=== PATIENT | male | born 1990 | race Caucasian/White ===

== ENCOUNTER 2017-06-02 14:10 | Emergency (ER) | payer OTHER ==
[~2017-06-02] VITALS: Ht 167.6 cm; Wt 59.0 kg
[2017-06-02] MEDS ORDERED: VENTOLIN HFA 1818 GM INH (14:17)
[2017-06-02] MEDS ORDERED: ZPAK PO (14:17)
[2017-06-02 15:52] VITALS: BP 108/78
== END 2017-06-02 15:52 ==
LOC: M.ERS 14:10
DX: J18.1 Lobar pneumonia, unspecified organism (principal); F41.9 Anxiety disorder, unspecified; F32.9 Major depressive disorder, single episode, unspecified; F17.210 Nicotine dependence, cigarettes, uncomplicated